=== PATIENT | male | born 1980 | race African-American/Black ===

== ENCOUNTER 2017-02-02 18:04 | Emergency (ER) | payer OTHER ==
[2017-02-02 17:29] LABS: URINE SOURCE CLEAN CATCH
[2017-02-02 17:33] LABS: URINE APPEARANCE CLEAR; URINE BILIRUBIN NEG (NEG); URINE BLOOD NEG (NEG); URINE COLOR YELLOW; URINE GLUCOSE NEG (NEG); URINE KETONE NEG (NEG); URINE LEUKOCYTE ESTERASE NEG (NEG); URINE NITRATE NEG (NEG); URINE PH 5.5 (5-8); URINE PROTEIN NEG (NEG); URINE SPECIFIC GRAVITY 1.009 (1.003-1.035); URINE UROBILINOGEN 0.2 MG/DL (NEG)
[2017-02-02 17:52] LABS: CULTURE INDICATED? NO
[2017-02-05 13:00] LABS: CHLAMYDIA TRACH Not Detected (Not Detected); N GONOR Not Detected (Not Detected)
== END 2017-02-02 18:38 | disposition home or self-care (01) ==
LOC: CFTX 18:04
PROVIDERS: Physician Assistant
DX: S33.5XXA Sprain of ligaments of lumbar spine, initial encounter (principal); X50.1XXA Overexertion from prolonged static or awkward postures, initial encounter; Y92.009 Unspecified place in unspecified non-institutional (private) residence as the place of occurrence of the external cause
CPT/HCPCS: 81003; 87491; 87591; 96372; 99283; J1885

== ENCOUNTER 2017-04-11 11:52 | Emergency (ER) | payer OTHER | END 2017-04-11 16:13 | disposition home or self-care (01) | LOC: CED 11:52 → CFTX 11:52 | DX: S16.1XXA Strain of muscle, fascia and tendon at neck level, initial encounter (principal); J02.0 Streptococcal pharyngitis; X50.9XXA Other and unspecified overexertion or strenuous movements or postures, initial encounter; Y92.009 Unspecified place in unspecified non-institutional (private) residence as the place of occurrence of the external cause | CPT/HCPCS: 87880; 96372; 99283; J0561; J1885 ==